=== PATIENT | female | born 2000 | race Caucasian/White ===

== ENCOUNTER 2021-02-03 09:22 | Emergency (ER) | payer MEDICAID, SELFPAY ==
[2021-02-03 09:40] VITALS: BP 118/71; PULSE 78; RESP 18; TEMP 36.6; O2SAT 98; BMI 36.6
--- NOTE | 2021-02-03 10:09 | ED.LOWEXIN ---
HPI - Extremity Injury (Lower) General Chief Complaint: Extremity Injury, Lower Stated Complaint: toe injury Time Seen by Provider: 02/03/21 10:05 Source: patient Mode of arrival: ambulatory Limitations: no limitations History of Present Illness MD complaint: other (toe pain swelling) Onset (ago): month(s) (6) Injury: Left: toes Place: home Severity: mild Relieving factors: nothing Exacerbating factors: weight bearing and palpation Context: other (hx of ingrown toenail) Associated symptoms: swelling Other symptoms: other (redness) Related Data Previous Rx's Medication Instructions Recorded cephalexin 500 mg capsule 500 mg PO TID 7 Days #21 cap 02/03/21 mupirocin 2 % topical ointment 1 appl TOPICAL BID 7 Days #15 g 02/03/21 Allergies Allergy/AdvReac Type Severity Reaction Status Date / Time shrimp [SHRIMP] Allergy Severe HIVES, Unverified 03/21/20 19:03 SWELLING shrimp Allergy Unknown Uncoded 06/08/18 00:00 Review of Systems Review of Systems: Constitutional : No Fever, No Chills ENT/Mouth : No sore throat, No Rhinorrhea Eyes: No Eye Pain, No Swelling, No Redness Cardiovascular : No Chest Pain, No SOB Respiratory : No Cough, No Sputum Gastrointestinal : No Nausea, No Vomiting, No Diarrhea, No abdominal Pain Genitourinary : No Dysuria, No Hematuria Musculoskeletal : No joint pain, No Myalgias, No Joint Swelling Skin : No Skin Lesions, positive skin rash Neuro : No Weakness, No Numbness, No Headache Psych : No Anxiety, No Depression Heme/Lymph: No Bruising, No Bleeding,No Lymphadenopathy Endocrine : No Polyuria, No Polydipsia All other systems reviewed and are negative [facility] Past Medical History Attestation statement: The following information was validated with the patient. Medical History Anxiety Social History Social History (Updated 02/03/21 @ 10:25 by Macey Santiago DO) Patient Tobacco Use Status: Never used Tobacco Advance Directives: No Advance Directives Information Provided: No Patient : No Physical Exam Vital Signs: Vital Signs: Last Vital Signs Temp 97.9 F 02/03/21 09:40 Pulse 78 02/03/21 09:40 Resp 18 08/02/21 09:40 BP 118/71 02/03/21 09:40 Pulse Ox 98 02/03/21 09:40 Body Mass Index 36.6 Appearance: Alert. Oriented X3. No acute distress. Eyes: Pupils equal, round and reactive to light. ENT: Pharynx normal. Neck: Normal inspection. Neck supple. CVS: Normal heart rate and rhythm. Pulses normal. Respiratory: No respiratory distress. Breath sounds normal. Abdomen: Soft and nontender. Skin: Skin warm and dry. Normal skin color. Normal skin turgor. Extremities: No lower extremity edema. L great toe thickened nail with ingrown aspect medial aspect with scant purulence mild erythema mild swelling Neuro: Oriented X 3. No motor deficit. No sensory deficit. MDM - Extremity Injury (Lower) MDM Narrative Medical decision making narrative: 20 yo female with 6 months of L great ingrown toenail now with some purulence and redness - able to walk, no signs of extending infection, not toxic appearing, oral and topical antibiotics follow up with podiatry Discharge Plan Discharge Clinical Impression: Ingrown toenail with infection Patient Disposition: Home, Self-Care Instructions: Ingrown Nail (ED) Additional Instructions: return to ED for any worsening symptoms or concerns Prescriptions: New cephalexin 500 mg capsule 500 mg PO TID 7 Days Qty: 21 RF: 0 mupirocin 2 % ointment 1 appl topical BID 7 Days Qty: 15 RF: 0 Referrals: Fernando Mares [Physician] - 1 week Stand Alone Forms: Work/School Release
[2021-02-03] MEDS: cephALEXin 500 MG CAPSULE PO (10:29)
== END 2021-02-03 10:31 | disposition home or self-care (01) ==
PROVIDERS: Emergency Provider Emergency Medicine
DX: L60.0 Ingrowing nail (principal); M79.675 Pain in left toe(s)
CPT/HCPCS: 99283